=== PATIENT | male | born 1955 | race Caucasian/White ===

== ENCOUNTER 2023-12-22 06:01 | Emergency (ER) | payer MEDICARE, OTHER, SELFPAY ==
[2023-12-22] VITALS (14 sets, daily range): BP systolic 112–155; BP diastolic 62–97; BMI 28.1
--- NOTE | 2023-12-22 06:36 | ED.GENMED ---
History of Present Illness
General
Chief Complaint: Heart Rate Problem
Source: patient
Exam Limitations: none
Time Seen by Provider: 12/22/23 06:27
Nursing documentation reviewed up to this point in time: agreed with
Travel History
Have you had any contact with someone who has COVID-19?: No
Do you have any symptoms of coronavirus? Fever > 100 degrees, chills, cough, shortness of breath, sore throat, loss of taste or smell, muscle aches, or headache?: No
History of Present Illness
History of Present Illness:
69-year-old male PAF followed by Dr. Gilbert status post ablation status post stenting he is on Brilinta, aspirin and atorvastatin went into A-fib around 4:30 AM just about 2 hours ago, has not been in A-fib since when he was
cardioverted and treated supplementally with Xarelto he tells me his typical scenario is he comes in quickly after he starts A-fib he was cardioverted gets put on Xarelto his Brilinta is held he had no fever no chest pain no diarrhea has not eaten
anything today he would like to be cardioverted
Past History
Past History
ED Past Medical History: Arrthythmia and CAD
Social History
Tobacco: Non-smoker
Alcohol: None
Drug: None
Personal:
Living: with family
Review of Systems
Review of Systems
All Other Systems: Not applicable
EENT: Reports no symptoms
Respiratory: Reports no symptoms
Cardiac: Reports palpitations
ABD/GI: Reports no symptoms
: Reports no symptoms
Skin: Reports no symptoms
Neurological: Reports no symptoms
Phy Exam
Physical Exam
Physical Exam:
Physical Exam
General: no apparent distress, not acutely ill
Neck: No jaundice
Heart: Tachycardic irregular
Lungs: no acute respiratory distress. clear bilaterally
Neuro: alert and oriented. no focal neurological deficits
Skin: no rash
Psychiatric: well kept. interactive and cooperative
Extremities: no edema. no calf tenderness.
Course
Orders/Labs/Results
Orders:
Orders
12/22/23 06:11
EKG [Electrocardiogram (*1)] Urgent
Reason for Study: Atrial Fibrillation
EKG- Treatment ONCE
12/22/23 06:34
Propofol [Diprivan] 100 mg IV NOW STA
12/22/23 06:35
ASA Classification Routine
12/22/23 06:41
Comprehensive Metabolic Panel Urgent
12/22/23 06:49
EKG [Electrocardiogram (*1)] Urgent
Reason for Study: Atrial Fibrillation
12/22/23 06:50
EKG- Treatment ONCE
Abnormal Lab Results
12/22/23
06:41
Glucose 105 H mg/dl
(70-99)
Total Protein 6.2 L g/dl
(6.3-8.2)
12/22/23 06:41
Vital Signs
Initial and Last Documented VS:
Initial Vital Signs
Temp Pulse Resp BP Pulse Ox
98.2 F 73 24 137/74 96
12/22/23 06:04 12/22/23 06:04 12/22/23 06:04 12/22/23 06:04 12/22/23 06:04
Last Documented Vital Signs
Temp Pulse Resp BP Pulse Ox
98.2 F 51 18 112/67 96
12/22/23 06:04 12/22/23 07:15 12/22/23 07:15 12/22/23 07:15 12/22/23 07:15
Procedures
Cardioversion
Indication:: Afib
Performed by:: ning
Synchronized?: Yes
Energy Used: 200 joules
Number of attempts: 1
Successful?: Yes
Complications: yes
ASA Risk Score: Class II
Any reaction or bad outcome to prior sedation/anesthesia?: No history of a reaction
Sedation level to be attained: moderate
Chart and allergies reviewed: Yes
Patient reassessed prior to sedation: Yes
Time out completed at (validating right patient & procedure): 06:52
History of difficult intubation: No
Airway free of obstruction: Yes
Patient has a gag reflex: Yes
Patient is able to open mouth: Yes
Patient has no dentures: Yes
Patient has no loose teeth: Yes
Medication administered by Provider during Moderate Sedation: IV Propofol (mg)
Total dose administered: 80
Time drug administered: 06:52
Start Time: 06:52
Stop Time: 07:02
MDM/Problems Addressed
Differential Diagnosis Includes:
A-fib and flutter atrial tach
MDM/Problems Addressed:
A-fib less than 3 hours duration
Chronic conditions affecting care:
CAD A-fib
Acute Exacerbation and/or Progression of Chronic Illness:
CAD A-fib
*Pulse Oximetry
Patient hypoxic: no
*EKG
Interpreted by ED Provider?: Yes
Interpretation: abnormal
Comparison EKG: no comparison EKG present
Heart Rate: 110
Rate: tachycardiac
Rhythm: atrial flutter
Ischemia: non-specific ST changes
*Garment Presser Interpretation
Rate: tachycardiac
Interpretation: abnormal
Heart Rate: 118
Rhythm: a-fib
*Critical Care Note
Total Time (30-74mins, 75-104mins- exclusive of procedures): 15
Data Reviewed
Review of Other/Old Records Reveals: Labs and Progress Notes
Source: patient
Prescriptions/Medications Considered But Not Given:
Propafenone
Further Testing Considered But Not Given:
Chest x-ray
Update Note
Update Note:
Update patient successfully cardioverted into normal sinus rhythm 1 synchronized 200 J shock
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
ED Attending Note
-
Portions of this chart may have been created with voice recognition software.� Occasional wrong word or��sound alike� substitutions may have occurred due to the inherent limitations of voice recognition software.
Discharge Plan
Departure
Patient Disposition: Home (Routine Discharge)
Date of Disposition: 12/22/23
Time of Disposition: 07:46
Patient with high blood pressure during this ER visit?: No
Condition: Good
Discharge Problem:
Atrial fibrillation status post cardioversion
Instructions: Atrial Fibrillation (DC), MODERATE SEDATION ADULT
Prescriptions:
No Action
aspirin [Ecotrin Low Strength] 81 MG tablet,delayed release (DR/EC)
81 mg PO DAILY
atorvastatin 80 MG tablet
80 mg PO QPM Qty: 30 3RF
ticagrelor [Brilinta] 90 MG tablet
90 mg PO BID Qty: 60 3RF
metoprolol succinate 25 MG tablet extended release 24 hr
12.5 mg PO DAILY
travoprost 1 DROP drops
1 drp BOTH EYES QPM
loratadine 10 MG tablet
10 mg PO PRN PRN (Reason: allergies)
rivaroxaban [Xarelto] 20 MG tablet
20 mg PO DAILY Qty: 30 0RF
Xarelto 20 mg tablet
20 mg PO DAILY Qty: 30 0RF
Referrals:
Scooby Feng MD [Family Provider] -
Galdino Gilbert MD [Active] - Next open appointment
Activity Restrictions/Additional Instructions:
Hold Brilinta start Xarelto 20 mg for the next [address] Gilbert's office to arrange follow-up
Interventions
Interventions:
*Risk Screen - Suicide Last Done: 12/22/23 06:04
*General Assessment Last Done: 12/22/23 06:04
*Neglect/Abuse Screening Last Done: 12/22/23 06:04
ED- Fall Risk Assessment Last Done: 12/22/23 06:04
*ED COVID-19 Vaccine History Last Done: 12/22/23 06:04
ED- Cardiac Assessment Last Done: 12/22/23 06:25
ED- Pulmonary Assessment Last Done: 12/22/23 06:25
[2023-12-22] MEDS: DIPRIVAN 100 MG IV (06:48)
[2023-12-22 07:18] LABS: ALT (SGPT) 38 U/L (0-50); AST (SGOT) 30 U/L (17-59); Albumin 3.8 g/dl (3.5-5.0); Alkaline Phosphatase 78 U/L (38-126); Blood Urea Nitrogen 20 mg/dl (9-20); Calcium 9.2 mg/dl (8.4-10.2); Carbon Dioxide 25 mmol/L (22-30); Chloride 106 mmol/L (98-107); Estimated Creatinine Clearance 100 ml/min; Glucose 105 mg/dl (70-99); Potassium 3.8 mmol/L (3.5-5.1); Sodium 140 mmol/L (135-145); Total Protein 6.2 g/dl (6.3-8.2); eGFR > 60.00
== END 2023-12-22 08:17 | disposition home or self-care (01) ==
LOC: EMR 06:01
PROVIDERS: EMERGENCY PHYSICIAN Emergency Medicine; FAMILY PHYSICIAN Family Medicine
DX: I48.91 Unspecified atrial fibrillation (principal); I25.10 Atherosclerotic heart disease of native coronary artery without angina pectoris; I48.92 Unspecified atrial flutter; Z79.02 Long term (current) use of antithrombotics/antiplatelets; Z79.01 Long term (current) use of anticoagulants
CPT/HCPCS: 92960; 99285; 99152; 80053; 93005

== ENCOUNTER 2024-05-06 11:27 | Emergency (ER) | payer MEDICARE, OTHER, SELFPAY ==
[2024-05-06] VITALS (16 sets, daily range): BP systolic 99–134; BP diastolic 60–102; BMI 27.6
[2024-05-06 11:56] LABS: % Basophils 0.5 % (0-2); % Eosinophils 3.4 % (0-6); % Immature Granulocytes 0.1 % (0-0.5); % Lymphocytes 22.6 % (20.5-51.1); % Monocytes 11.1 % (1.7-9.3); % Neutrophils 62.3 % (42.2-75.2); Absolute Eosinophils 0.3 10^3/uL (0-0.7); Absolute Lymphocytes 1.8 10^3/uL (1.2-3.4); Absolute Monocytes 0.9 10^3/uL (0.1-0.6); Absolute Neutrophils 4.9 10^3/uL (1.4-6.5); Hematocrit 44.6 % (39.0-52.0); Hemoglobin 15.5 g/dL (13.0-18.0); Mean Corp Hgb Conc. 34.8 g/dL (33.0-37.0); Mean Corpuscular Hgb 29.1 pg (27.0-31.0); Mean Corpuscular Volume 83.8 fL (80.0-94.0); Mean Platelet Volume 10.3 fL (7.4-10.4); Nucleated Red Blood Cells % 0 % (-); Platelet Count 222 10^3/uL (130-400); Red Blood Cell Count 5.32 10^6/uL (4.70-6.10); Red Cell Dist. Width 13.6 % (11.5-14.5); White Blood Cell Count 7.8 10^3/uL (4.8-10.8)
[2024-05-06 12:12] LABS: ALT (SGPT) 24 U/L (0-50); AST (SGOT) 30 U/L (17-59); Albumin 4.2 g/dl (3.5-5.0); Alkaline Phosphatase 69 U/L (38-126); Blood Urea Nitrogen 14 mg/dl (9-20); Carbon Dioxide 24 mmol/L (22-30); Chloride 110 mmol/L (98-107); Estimated Creatinine Clearance 98 ml/min; Glucose 108 mg/dl (70-99); Potassium 4.2 mmol/L (3.5-5.1); Sodium 142 mmol/L (135-145); Total Bilirubin 1.3 mg/dl (0.2-1.3); Total Protein 6.7 g/dl (6.3-8.2); eGFR > 60.00
--- NOTE | 2024-05-06 12:30 | ED.GENMED ---
History of Present Illness
General
Chief Complaint: Heart Rate Problem
Source: patient and records
Exam Limitations: none
Time Seen by Provider: 05/06/24 11:47
Nursing documentation reviewed up to this point in time: agreed with
Travel History
Have you had any contact with someone who has COVID-19?: No
Do you have any symptoms of coronavirus? Fever > 100 degrees, chills, cough, shortness of breath, sore throat, loss of taste or smell, muscle aches, or headache?: No
History of Present Illness
History of Present Illness:
Patient is a 69-year-old male who presents to the emergency department with being in atrial fibrillation since sometime between 7 AM and 8:20 AM this morning. Patient feels a little off. Patient denies chest pain, shortness of breath. Patient
denies fever or chills. Patient denies any recent illnesses or injuries. Patient denies any GI or symptoms. Patient's been on Brilinta because of stents and took Xarelto this morning. Patient typically does not take Xarelto on a regular basis.
Past History
Past History
ED Past Medical History: Arrthythmia, CAD and Other (Kidney stones, hiatal hernia)
Social History
Tobacco: Non-smoker
Alcohol: None
Drug: None
Personal:
Living: with family
Review of Systems
Review of Systems
All Other Systems: ROS reviewed and negative except as documented in HPI and ROS
Constitutional: Reports fatigue; Denies fever or chills
EENT: Reports no symptoms
Respiratory: Reports no symptoms
Cardiac: Reports palpitations; Denies chest pain, diaphoresis or syncope
ABD/GI: Reports no symptoms
: Reports no symptoms
Musculoskeletal: Reports no symptoms
Skin: Reports no symptoms
Neurological: Reports no symptoms
Hematologic/Lymphatic: Reports no symptoms
Phy Exam
Physical Exam
Physical Exam:
Physical Exam
General: No apparent distress, alert and appropriate, well nourished, well hydrated
HENT: Normocephalic, supple with no lymphadenopathy, no thyromegaly
Eyes: Clear sclera, conjuctiva without injection
Heart: irregular irregular rhythm and tachycardic rate. No S3, S4. No murmur. No NVDuit
Lungs: No respiratory distress, no stridor, lung sounds clear and equal bilaterally, chest wall symmetrical and nontender
Abdomen: Soft, nontender, no organomegaly, no CVA tenderness, BS good
Neuro: Alert and oriented x 3, CN II - XII intact, no motor focality, no cerebellar dysfunction
Skin: no rash
Psychiatric: well kept. interactive and cooperative
Extremities: No edema, cyanosis, tenderness, Good and equal peripheral pulses.
Scores
Heart Failure Risk
Heart Failure Risk Score: Not Applicable
Heart Score for Chest Pain Patients
STEMI patient?: Not applicable
Withdrawal Assessment of Alcohol
Withdrawal Assessment Completed?: Not applicable
Course
Orders/Labs/Results
Orders:
Orders
05/06/24 11:28
Electrocardiogram (*1) Urgent
Reason for Study: Chest Pain
05/06/24 11:29
EKG- Treatment ONCE
05/06/24 11:47
Complete Blood Count/With Diff Urgent
Comprehensive Metabolic Panel Urgent
05/06/24 12:08
Propofol [Diprivan] 20 ml .ROUTE .STK-MED
05/06/24 12:23
Electrocardiogram (*1) Urgent
Reason for Study: Other
Other Reason for Exam: post cardioversion
EKG- Treatment ONCE
Abnormal Lab Results
05/06/24
11:47
Chloride 110 H mmol/L
(98-107)
Glucose 108 H mg/dl
(70-99)
05/06/24 11:47
Vital Signs
Initial and Last Documented VS:
Initial Vital Signs
Temp Pulse Resp BP Pulse Ox
98.6 F 125 16 134/74 96
05/06/24 11:32 05/06/24 11:32 05/06/24 11:32 05/06/24 11:32 05/06/24 11:32
Last Documented Vital Signs
Temp Pulse Resp BP Pulse Ox
98.6 F 59 15 99/64 94
05/06/24 12:19 05/06/24 12:30 05/06/24 12:30 05/06/24 12:30 05/06/24 12:30
Procedures
Moderate Sedation
Moderate Sedation Start Time(when first medication is given): 12:19
Cardioversion
Indication:: Afib
Performed by:: linkenheimer
Synchronized?: Yes
Energy Used: Other (100)
Number of attempts: 1
Successful?: Yes
Complications: none
ASA Risk Score: Class II
Any reaction or bad outcome to prior sedation/anesthesia?: No history of a reaction
Sedation level to be attained: deep
Chart and allergies reviewed: Yes
Patient reassessed prior to sedation: Yes
Time out completed at (validating right patient & procedure): 12:19
History of difficult intubation: No
Airway free of obstruction: Yes
Patient has a gag reflex: Yes
Patient is able to open mouth: Yes
Patient has no dentures: Yes
Patient has no loose teeth: Yes
Medication administered by Provider during Moderate Sedation: IV Propofol (mg)
Total dose administered: 70
Time drug administered: 12:19
Start Time: 12:19
Stop Time: 12:29
*Radiology
Radiology exam reviewed: other (na)
*Pulse Oximetry
Patient hypoxic: no
*EKG
Interpreted by ED Provider?: Yes
EKG Intrepretation Date: 05/06/24
EKG Intrepretation Time: 12:37
Interpretation: abnormal
Comparison EKG: changes noted
Heart Rate: 141
Rate: tachycardiac
Rhythm: a-fib
[place]: normal axis
Interval: normal QT interval
QRS Pattern: normal QRS
Ischemia: non-specific ST changes
*Curriculum Coach Interpretation
Rate: tachycardiac
Interpretation: abnormal
Heart Rate: 140
Rhythm: a-fib
*Critical Care Note
Total Time (30-74mins, 75-104mins- exclusive of procedures): Not Applicable
ED Attending Note
-
Portions of this chart may have been created with voice recognition software.� Occasional wrong word or��sound alike� substitutions may have occurred due to the inherent limitations of voice recognition software.
Discharge Plan
Departure
Patient Disposition: Home (Routine Discharge)
Date of Disposition: 05/06/24
Time of Disposition: 12:40
Patient with high blood pressure during this ER visit?: No
Condition: Good
Covid-19: Not Applicable
Discharge Problem:
Atrial fibrillation with rapid ventricular response, Encounter for cardioversion procedure
Instructions: Atrial Fibrillation (DC), MODERATE SEDATION ADULT
Prescriptions:
No Action
aspirin [Ecotrin Low Strength] 81 MG tablet,delayed release (DR/EC)
81 mg PO DAILY
atorvastatin 80 MG tablet
80 mg PO QPM Qty: 30 3RF
ticagrelor [Brilinta] 90 MG tablet
90 mg PO BID Qty: 60 3RF
metoprolol succinate 25 MG tablet extended release 24 hr
12.5 mg PO DAILY
travoprost 1 DROP drops
1 drp BOTH EYES QPM
loratadine 10 MG tablet
10 mg PO PRN PRN (Reason: allergies)
rivaroxaban [Xarelto] 20 MG tablet
20 mg PO DAILY Qty: 30 0RF
Xarelto 20 mg tablet
20 mg PO DAILY Qty: 30 0RF
Referrals:
Scooby Feng MD [Family Provider] - As needed
Galdino Gilbert MD [Active] - Call in 1-3 days for appt
Interventions
Interventions:
*Risk Screen - Suicide Last Done: 05/06/24 12:00
*General Assessment Last Done: 05/06/24 11:43
*Neglect/Abuse Screening Last Done: 05/06/24 12:00
ED- Fall Risk Assessment Last Done: 05/06/24 11:44
*ED COVID-19 Vaccine History Last Done: 05/06/24 11:32
ED- Cardiac Assessment Last Done: 05/06/24 11:42
ED- Pulmonary Assessment Last Done: 05/06/24 11:43
Discharge Date and Time
Print Language: AMHARIC
== END 2024-05-06 14:25 | disposition home or self-care (01) ==
LOC: EMR 11:27
PROVIDERS: EMERGENCY PHYSICIAN Emergency Medicine; FAMILY PHYSICIAN Family Medicine
DX: I48.91 Unspecified atrial fibrillation (principal); Z79.01 Long term (current) use of anticoagulants; Z79.02 Long term (current) use of antithrombotics/antiplatelets
CPT/HCPCS: 92960; 99285; 99152; 80053; 85025; 93005

== ENCOUNTER → 2024-06-10 13:43 | Outpatient (REF) | payer MEDICARE, OTHER, SELFPAY ==
[2024-06-10 14:26] LABS: % Basophils 0.4 % (0-2); % Eosinophils 1.3 % (0-6); % Immature Granulocytes 0.5 % (0-0.5); % Lymphocytes 14.7 % (20.5-51.1); % Monocytes 11.3 % (1.7-9.3); % Neutrophils 71.8 % (42.2-75.2); Absolute Eosinophils 0.1 10^3/uL (0-0.7); Absolute Lymphocytes 1.2 10^3/uL (1.2-3.4); Absolute Monocytes 0.9 10^3/uL (0.1-0.6); Absolute Neutrophils 5.7 10^3/uL (1.4-6.5); Hematocrit 24.6 % (39.0-52.0); Hemoglobin 8.6 g/dL (13.0-18.0); Mean Corpuscular Hgb 30.2 pg (27.0-31.0); Mean Corpuscular Volume 86.3 fL (80.0-94.0); Mean Platelet Volume 10.4 fL (7.4-10.4); Nucleated Red Blood Cells % 0 % (-); Platelet Count 190 10^3/uL (130-400); Red Blood Cell Count 2.85 10^6/uL (4.70-6.10); Red Cell Dist. Width 13.6 % (11.5-14.5)
== END ==
LOC: REG 13:43
PROVIDERS: ATTENDING PHYSICIAN Family Medicine; REFERRING PHYSICIAN Internal Medicine Cardiovascular Disease
DX: S80.12XA Contusion of left lower leg, initial encounter (principal)
CPT/HCPCS: 36415; 85025

== ENCOUNTER 2024-08-21 08:15 | Day surgery (SDC) | payer MEDICARE, OTHER, SELFPAY ==
[2024-08-15 10:57] VITALS: BMI 29.6
[2024-08-21] VITALS (13 sets, daily range): BP systolic 103–152; BP diastolic 48–90
[2024-08-21] MEDS: TYLENOL 1000 MG PO (09:26)
[2024-08-21] MEDS: FLOMAX 0.4 MG PO (09:36)
[2024-08-21 10:48] LABS: ACT-LR - POC 337 Seconds (116-155)
[2024-08-21 11:06] LABS: ACT-LR - POC 300 Seconds (116-155)
--- NOTE | 2024-08-21 11:34 | ITS.CL.ABL ---
Competency Evaluated Nurse Aide - Ablation
Ablation
Procedure Report:
ELECTROPHYSIOLOGY ABLATION STUDY
DATE:: August 21, 2024 REFERRING: Dr. Galdino Gilbert
INDICATION: Paroxysmal supraventricular tachycardia in the form of atrial fibrillation. Prior PVI 2013 with a 28 mm cryoballoon
HISTORY: See H and P. As above
ANTIARRHYTHMIC DRUG: Prior history of coronary artery disease
PRE-PROCEDURE ELY: No atrial thrombus
PRESENTING RHYTHM: Sinus bradycardia
'TIME-OUT': called and confirmed.
SEDATION/ANESTHESIA: provided via the anesthesia department using general anesthesia (LMA).
INTRAVENOUS/ARTERIAL ACCESS:
Right femoral venous - 8Fr
Left femoral venous - 8 Fr, 6 Fr
Vascade vascular closure was placed to each femoral vein
Ultrasound guidance for bilateral femoral vein access was utilized by me to obtain access with demonstration of normal anatomy
CHADS-VASC Score:
HAS-Bled Score
PROCEDURE:
1. A decapolar CS catheter was placed within the CS for mapping and pacing. This was also used as the reference catheter for the 3-D map.
2. The intracardiac ultrasound catheter was positioned in the RA to identify the FO for targeting of transseptal puncture, assist in identification of the pulmonary vein ostia, monitoring pre and post ablation pulmonary vein flow velocities,
monitoring for 'bubble' formation during RF application as a sign of thermal injury, and to monitor for pericardial effusion during mapping and ablation procedure. Left atrial size, LV ejection fraction, and pulmonary vein flows were monitored
pre and post ablation procedure. The other valves were inspected and found to be free of significant regurgitation or stenosis.
3. Half of the calculated heparin bolus was administered prior to the first transeptal puncture. Transseptal puncture was performed to diagnose RA and LA pressure so that safety of LA mapping and ablation could be further assessed, and to access
the left atrium and pulmonary veins for mapping and ablation. This entailed advancing an 8 Fr SL-1 sheath with dilator into the superior vena cava and withdrawing both (monitoring intracardiac ultrasound, fluoroscopy and tip pressure) with the tip
oriented toward the atrial septum. The fossa ovalis was engaged (indicated by sudden displacement of the sheath tip as well as tenting of the fossa seen on intracardiac ultrasound). Left atrial access required a pass with the [place] needle
extended. Left atrial catheter position was confirmed by pressure monitoring (RA mean pressure 8 mm Hg and LA mean presure 14 mm Hg), LA saturation (99%), as well as fluoroscopy. The sheath was advanced over the dilator and positioned in the left
atrium. This procedure was repeated for the Agilis sheath. The remainder of the calculated heparin bolus was administered and heparin was
infused to maintain ACT at 300 -350 seconds throughout the case.
4. RA pacing was performed via the proximal decapolar poles and LA pacing was performed via the distal decapolr poles.
5. A quadrapolar catheter was first positioned at the His position for His Bundle recording which was tagged via the 3-D Navex sytem, and then passed to the RVA for RV pacing and recording.
6. The multipolar catheter and the pulsed light catheter placed in each of the LIPV, LSPV, RSPV and the RIPV. There was reconnection of the josephine at the superior aspect and inferior aspect of the septum of the right pulmonary veins.
7. Next, a 3-D map was created using Navex. A 3-D reconstructed CT image was compared to the 3-D Navex map to assist in anatomic interpretation, mapping and ablation. The CT image and the NavX image were fused.
8. A total of 78 lesions were given to the posterior wall and anterior of each set of veins as well as the interatrial septum on the septal aspect. This rendered entrance and exit block in all 4 pulmonary veins plus the posterior wall with
entrance and exit block.
9. With coronary sinus pacing the multipolar catheter interrogated the prior cavotricuspid isthmus area demonstrating bidirectional block and intra isthmus conduction time greater than 120 ms bidirectionally.
TOTAL FLOURO TIME: 14.7 minutes 122 mGy
TOTAL RF DURATION: 0 minutes
REVERSAL OF HEPARIN: 30 mg of protamine, slow IV administration
COMPLICATIONS:
None
Intracardiac US shows no pericardial effusion post ablation.
SUMMARY:
Complex left atrial mapping and ablation.
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
RECOMMENDATIONS:
1. Admit to monitored bed.
2. Resume anticoagulation
3. Out of bed to hours
4. Consider same-day discharge
Copy to: Dr. Galdino Gilbert
[2024-08-21] MEDS: TOPROL XL 25 MG PO (12:59)
--- NOTE | 2024-08-21 13:54 | W.PN.UPDATE ---
Addendum entered and electronically signed by ISI Gustafson 08/21/24 15:27:
ADD: Pt remains in SR w/short bursts AT, 90-110s. He is oob ambulating, groin site stable. Dr. Gilbert out to see pt.
Will adjust metoprolol xl to 12.5mg BID with one dose this evening. A [employer] monitor will be sent to patient in 5-7 days for outpatient monitoring. Continue OAC at this time.
Home today.
Original Note:
Update Note
Progress Note Update
Pt seen post PFA. Bilat groin sites with vascade closure, no ht/bleeding, oob ambulating, urinating without difficulty. Post EKG SB 50s as before, then developed MAT with rates 90-110s, some associated palpitations. One dose metoprolol xl 25mg po
given with no real changes. Remains in SR w/bursts AT. Dr. Gilbert and Dr. Fam both aware. Resume xarelto tonight. Followup at [facility] as scheduled. Home today if groin site/tele remain stable.
== END 2024-08-21 16:11 | disposition home or self-care (01) ==
LOC: CATH 08:15
PROVIDERS: ATTENDING PHYSICIAN Internal Medicine Cardiovascular Disease; FAMILY PHYSICIAN Family Medicine
DX: I48.0 Paroxysmal atrial fibrillation (principal); I47.19 Other supraventricular tachycardia; I25.10 Atherosclerotic heart disease of native coronary artery without angina pectoris; I10 Essential (primary) hypertension; E78.5 Hyperlipidemia, unspecified; N40.0 Benign prostatic hyperplasia without lower urinary tract symptoms; H40.9 Unspecified glaucoma; Z95.5 Presence of coronary angioplasty implant and graft; Z79.82 Long term (current) use of aspirin; Z79.01 Long term (current) use of anticoagulants
CPT/HCPCS: C1732; C1894; C1730; C1733; C1769; C1892; C1759; 85347; 93005; 93656; 93657; C1760

== ENCOUNTER 2024-09-03 12:00 | Emergency (ER) | payer MEDICARE, OTHER, SELFPAY ==
[2024-09-03 12:05] VITALS: BP 102/75
--- NOTE | 2024-09-03 12:10 | ED.GENMED ---
ED Provider Triage
<Margo Larios PA-C - Last Filed: 09/03/24 12:13>
-
Patient seen by provider in Triage?: Seen in Triage
Attestation: A medical screening examination has been initiated by a qualified medical provider. Based on the assessment performed at this time, it has been determined that an emergent medical condition may exist and the patient has been informed
that further medical evaluation and possible additional diagnostic testing may be needed.
HPI: 69yoM here with palpitations since 2am. Currently feeling improved. S/p ablation 2 weeks ago.
GENERAL: Alert , in no apparent distress
EYE: No visual abnormalities.
NECK: Trachea midline
ENT: No visible abnormalities.
LUNGS: No acute respiratory distress
NEUROLOGICAL: Alert and oriented
SKIN: Skin intact. No visible changes.
MUSCULOSKELETAL: Moving extremities normally
PSYCH: Normal and appropriate interaction.
This is a medical evaluation conducted in person to initiate diagnostic evaluation and provide initial therapeutics. Please see further documentation by the treating clinician.
EKG in triage shows sinus bradycardia. Cardiac labs and magnesium ordered.
History of Present Illness
<Margo Larios PA-C - Last Filed: 09/03/24 12:13>
General
Chief Complaint: Cardiac Symptoms
Time Seen by Provider: 09/03/24 12:50
<Karen Roche PA-C - Last Filed: 09/03/24 19:31>
General
Source: patient
Exam Limitations: none
Nursing documentation reviewed up to this point in time: agreed with
History of Present Illness
History of Present Illness:
Patient is a 69-year-old male with history of CAD, atrial fibrillation s/p cardiac ablation 2 weeks ago presenting to the emergency department for evaluation of palpitations. Patient reports awoke at 2 AM this morning with sensation that his heart
was racing. He also endorses very mild shortness of breath and chest discomfort at that time. Symptoms persisted throughout the night and he spoke with his cloth calender the morning who states he could either wait it out or come to the emergency
department for evaluation. Patient presented to the emergency department at noon today although he states as he walked through the door symptoms resolved. At time my assessment�patient is asymptomatic. Patient denies any current feeling
palpitations, chest pain, shortness of breath, dizziness/lightheadedness, numbness/tingling, or back pain.
Patient did have cardiac ablation with Dr. Gilbert approximately 2 weeks ago
Patient is compliant with Xarelto.
Past History
<Margo Larios PA-C - Last Filed: 09/03/24 12:13>
Past History
ED Past Medical History: Arrthythmia, CAD and Other (Kidney stones, hiatal hernia)
Social History
Tobacco: Non-smoker
Alcohol: None
Drug: None
Personal:
Living: with family
Review of Systems
<Karen Roche PA-C - Last Filed: 09/03/24 19:31>
Review of Systems
Allergies reviewed?: Yes
All Other Systems: ROS reviewed and negative except as documented in HPI and ROS
Phy Exam
<Karen Roche PA-C - Last Filed: 09/03/24 19:31>
Physical Exam
Physical Exam:
Vitals: Patient's vital signs are stable. Afebrile
General: Patient is well appearing, no acute distress
Skin: Warm and dry, no rashes or lesions
Head: Normocephalic, atraumatic
Eyes: Sclera nonicteric. EOMs intact. No nystagmus.
Throat: Protecting airway
Neck: Normal ROM, no cervical spine tenderness, no meningismus
Cardiac: Regular rate and rhythm, no murmurs.
Pulm: Normal respiratory effort, no wheezes, rales, rhonchi heard on exam.
Abdomen: No abdominal tenderness.
Extremities: No evidence of cyanosis or edema. Great distal pulses
Neuro: AAOx3. CN II-XII intact. No focal neurologic deficits.
Psychiatric: Normal affect.
Course
<Margo Larios PA-C - Last Filed: 09/03/24 12:13>
Orders/Labs/Results
Orders:
Orders
09/03/24 12:02
ECG [Electrocardiogram (*1)] Urgent
Reason for Study: Palpitations
EKG- Treatment ONCE
09/03/24 12:18
Complete Blood Count/With Diff Urgent
Comprehensive Metabolic Panel Urgent
Magnesium Urgent
Troponin I Urgent
Abnormal Lab Results
09/03/24
12:18
Absolute Neuts (auto) 7.4 H 10^3/uL
(1.4-6.5)
Absolute Monos (auto) 0.8 H 10^3/uL
(0.1-0.6)
Lymphocytes % 15.2 L %
(20.5-51.1)
Glucose 111 H mg/dl
(70-99)
09/03/24 12:18
09/03/24 12:18
Vital Signs
Initial and Last Documented VS:
Initial Vital Signs
Temp Pulse Resp BP Pulse Ox
36.8 C 57 18 102/75 98
09/03/24 12:05 09/03/24 12:05 09/03/24 12:05 09/03/24 12:05 09/03/24 12:05
Last Documented Vital Signs
Temp Pulse Resp BP Pulse Ox
36.8 C 45 17 109/70 97
09/03/24 12:05 09/03/24 14:30 09/03/24 14:30 09/03/24 14:00 09/03/24 14:39
<Karen Roche PA-C - Last Filed: 09/03/24 19:31>
Orders/Labs/Results
Orders:
Orders
09/03/24 12:02
ECG [Electrocardiogram (*1)] Urgent
Reason for Study: Palpitations
EKG- Treatment ONCE
09/03/24 12:18
Complete Blood Count/With Diff Urgent
Comprehensive Metabolic Panel Urgent
Magnesium Urgent
Troponin I Urgent
Abnormal Lab Results
09/03/24
12:18
Absolute Neuts (auto) 7.4 H 10^3/uL
(1.4-6.5)
Absolute Monos (auto) 0.8 H 10^3/uL
(0.1-0.6)
Lymphocytes % 15.2 L %
(20.5-51.1)
Glucose 111 H mg/dl
(70-99)
09/03/24 12:18
09/03/24 12:18
Vital Signs
Initial and Last Documented VS:
Initial Vital Signs
Temp Pulse Resp BP Pulse Ox
36.8 C 57 18 102/75 98
09/03/24 12:05 09/03/24 12:05 09/03/24 12:05 09/03/24 12:05 09/03/24 12:05
Last Documented Vital Signs
Temp Pulse Resp BP Pulse Ox
36.8 C 45 17 109/70 97
09/03/24 12:05 09/03/24 14:30 09/03/24 14:30 09/03/24 14:00 09/03/24 14:39
<Kevin Moura MD - Last Filed: 09/03/24 19:51>
Orders/Labs/Results
Orders:
Orders
09/03/24 12:02
ECG [Electrocardiogram (*1)] Urgent
Reason for Study: Palpitations
EKG- Treatment ONCE
09/03/24 12:18
Complete Blood Count/With Diff Urgent
Comprehensive Metabolic Panel Urgent
Magnesium Urgent
Troponin I Urgent
Abnormal Lab Results
09/03/24
12:18
Absolute Neuts (auto) 7.4 H 10^3/uL
(1.4-6.5)
Absolute Monos (auto) 0.8 H 10^3/uL
(0.1-0.6)
Lymphocytes % 15.2 L %
(20.5-51.1)
Glucose 111 H mg/dl
(70-99)
09/03/24 12:18
09/03/24 12:18
Vital Signs
Initial and Last Documented VS:
Initial Vital Signs
Temp Pulse Resp BP Pulse Ox
36.8 C 57 18 102/75 98
09/03/24 12:05 09/03/24 12:05 09/03/24 12:05 09/03/24 12:05 09/03/24 12:05
Last Documented Vital Signs
Temp Pulse Resp BP Pulse Ox
36.8 C 45 17 109/70 97
09/03/24 12:05 09/03/24 14:30 09/03/24 14:30 09/03/24 14:00 09/03/24 14:39
<Karen Roche PA-C - Last Filed: 09/03/24 19:31>
MDM/Problems Addressed
Differential Diagnosis Includes:
Not limited to: Paroxysmal atrial fibrillation, other cardiac arrhythmia, viral illness, dehydration, etc.
MDM/Problems Addressed:
69-year-old male presenting with history of palpitations resolved by my assessment in the ER. Patient with recent cardiac ablation 2 weeks prior. Patient did have approximately 10 hours of palpitations associated with very mild shortness of
breath, lightheadedness, chest discomfort. Symptoms completely resolved on my assessment. Vital stable. Patient with normal sinus rhythm, borderline bradycardic at times likely secondary to beta-raciel. Physical exam as above. Patient is very
well-appearing, conversational and nontoxic. Heart regular rate and rhythm. Lungs good bilaterally. Patient is perfusing well. No neurologic deficits noted on exam. On safety consultant�patient appears to be in normal sinus rhythm with normal
vital signs. Labs were initiated in triage which show no clinically significant abnormalities. Troponin of 0.015. patient currently asymptomatic without any chest pain, shortness of breath, or feelings of palpitations. Do not suspect ACS.
Patient has moderate in the emergency department on safety consultant without any evidence of cardiac arrhythmia. Suspect likely patient was in atrial fibrillation earlier today and converted back to normal sinus rhythm by my assessment. Patient is
currently anticoagulated. No indication for admission or further testing at this time. Patient will be discharged with cardiology follow-up and return precautions. Patient seen with attending physician. Patient comfortable with plan. Eager for
discharge.
Chronic conditions affecting care:
Atrial fibrillation s/p ablation, CAD
Acute Exacerbation and/or Progression of Chronic Illness:
Paroxysmal atrial fibrillation
<Karen Roche PA-C - Last Filed: 09/03/24 19:31>
*Pulse Oximetry
Patient hypoxic: no
*EKG
Interpreted by ED Provider?: Yes
EKG Intrepretation Date: 09/03/24
Interpretation: normal
Heart Rate: 45
*Photogrammetric Compilation Specialist Interpretation
Rate: bradycardiac
Interpretation: normal
Heart Rate: 52
Rhythm: sinus
*Critical Care Note
Total Time (30-74mins, 75-104mins- exclusive of procedures): Not Applicable
Data Reviewed
Review of Other/Old Records Reveals: Operative Reports (Cardiac ablation performed on 08/21/[address] Gilbert)
<Karen Roche PA-C - Last Filed: 09/03/24 19:31>
Patient Management
Escalation/DeEscalation of care consider admission/obs:
Admit not indicated
ED Attending Note
<Margo Larios PA-C - Last Filed: 09/03/24 12:13>
-
Portions of this chart may have been created with voice recognition software.� Occasional wrong word or��sound alike� substitutions may have occurred due to the inherent limitations of voice recognition software.
<Kevin Moura MD - Last Filed: 09/03/24 19:51>
ED Attending Note
Patient seen and examined by attending physician: Yes
ED Attending Note:
I have seen and evaluated the patient with a [id number] encounter. I have spoken to the advance practicer provider and involved in the medical history, the physical exam, medical decision making.
Evaluation and management service: agree unless noted differently below.
Results interpretation: agree unless noted differently below.
Focused HPI: 69-year-old male with past medical history of atrial fibrillation on Xarelto (follows with Dr. Gilbert) who is 2 weeks status post cardiac ablation with Dr. Gilbert presents to the ER for evaluation of palpitations. Patient reports
that he woke up at 2 AM with palpitations and tachycardia. He says that symptoms consistent with his episodes of atrial fibrillation. He says that he was waiting for symptoms to improve but they were not improving as the morning went on and so he
ultimately came to the emergency room. He says shortly after he arrived in the emergency room his symptoms completely resolved and he is now asymptomatic. He says he did not have any chest pains. He says he had some mild dizziness associated
symptoms. Denies any significant amount of shortness of breath. He is compliant with all home medications including metoprolol and Xarelto.
Physical exam: Awake alert not in distress. Vital signs noted for heart rate in the 50s otherwise normal�patient chronic mild bradycardia on beta-raciel. He has no audible cardiac rubs gallops or murmurs. His lungs are clear to auscultation
bilaterally. He has no signs of edema in the extremities and good pulses throughout.
Medical Decision Makin-year-old male presents for evaluation after prolonged episode of palpitations and dizziness similar to prior episodes of atrial fibrillation. He is status post ablation [address] Gilbert. His symptoms
resolved shortly after arrival here in the emergency room and he now feels well and is asymptomatic. We sent off screening labs which were all unremarkable. EKG here shows sinus rhythm. Stable for discharge to follow-up with cardiology as an
outpatient.
Discharge Plan
Departure
Patient Disposition: Home (Routine Discharge)
Date of Disposition: 09/03/24
Time of Disposition: 14:36
Patient with high blood pressure during this ER visit?: No
Covid-19: Not Applicable
Discharge Problem:
History of palpitations
Prescriptions:
No Action
aspirin [Ecotrin Low Strength] 81 MG tablet,delayed release (DR/EC)
81 mg PO DAILY
travoprost 1 DROP drops
1 drp BOTH EYES HS
loratadine 10 MG tablet
10 mg PO PRN PRN (Reason: allergies)
Xarelto 20 MG tablet
20 mg PO DAILY Qty: 30 0RF
tamsulosin 0.4 mg Capsule
0.4 mg PO HS
atorvastatin 40 mg Tablet
40 mg PO DAILY
metoprolol succinate 25 MG tablet extended release 24 hr
12.5 mg PO BID Qty: 0 0RF
Referrals:
Scooby Feng MD [Family Provider] -
Galdino Gilbert MD [Active] - Keep scheduled appt
Activity Restrictions/Additional Instructions:
RETURN TO THE EMERGENCY DEPARTMENT WITH ANY PERSISTENT PALPITATIONS, CHEST PAIN, SHORTNESS OF BREATH, DIZZINESS/LIGHTHEADEDNESS, WORSENING IN CURRENT SYMPTOMS, OR ANY OTHER CONCERNS
-Continue to take all your medications as prescribed. Stay well-hydrated and take it easy over the next few days.
-Follow-up with cardiology as scheduled for further evaluation/management
Monitor your symptoms closely and return to the emergency department with any acute worsening/new symptoms
Interventions
Interventions:
*Risk Screen - Suicide Last Done: 09/03/24 14:38
*General Assessment Last Done: 09/03/24 14:37
*Neglect/Abuse Screening Last Done: 09/03/24 14:38
ED- Fall Risk Assessment Last Done: 09/03/24 14:48
*ED COVID-19 Vaccine History Last Done: 09/03/24 14:37
*Nursing Disposition Last Done: 09/03/24 14:48
ED- Pulmonary Assessment Last Done: 09/03/24 14:39
ED- Cardiac Assessment Last Done: 09/03/24 14:39
Discharge Date and Time
Discharge Date/Time: 09/03/24 14:52
Print Language: BURUN[place]
[2024-09-03 12:41] LABS: % Basophils 0.3 % (0-2); % Eosinophils 1.5 % (0-6); % Immature Granulocytes 0.3 % (0-0.5); % Lymphocytes 15.2 % (20.5-51.1); % Monocytes 8.3 % (1.7-9.3); % Neutrophils 74.4 % (42.2-75.2); Absolute Eosinophils 0.2 10^3/uL (0-0.7); Absolute Lymphocytes 1.5 10^3/uL (1.2-3.4); Absolute Monocytes 0.8 10^3/uL (0.1-0.6); Absolute Neutrophils 7.4 10^3/uL (1.4-6.5); Hematocrit 48.4 % (39.0-52.0); Hemoglobin 16.2 g/dL (13.0-18.0); Mean Corp Hgb Conc. 33.5 g/dL (33.0-37.0); Mean Corpuscular Hgb 28.6 pg (27.0-31.0); Mean Corpuscular Volume 85.4 fL (80.0-94.0); Nucleated Red Blood Cells % 0 % (-); Platelet Count 233 10^3/uL (130-400); Red Blood Cell Count 5.67 10^6/uL (4.70-6.10); Red Cell Dist. Width 12.9 % (11.5-14.5)
[2024-09-03 13:04] LABS: ALT (SGPT) 24 U/L (0-50); AST (SGOT) 27 U/L (17-59); Albumin 4.5 g/dl (3.5-5.0); Alkaline Phosphatase 80 U/L (38-126); Blood Urea Nitrogen 17 mg/dl (9-20); Calcium 9.1 mg/dl (8.4-10.2); Carbon Dioxide 26 mmol/L (22-30); Chloride 106 mmol/L (98-107); Glucose 111 mg/dl (70-99); Magnesium 2.2 mg/dl (1.6-2.3); Potassium 4.7 mmol/L (3.5-5.1); Sodium 143 mmol/L (135-145); Total Protein 6.9 g/dl (6.3-8.2); eGFR > 60.00
[2024-09-03 13:09] LABS: Troponin I 0.015 ng/ml
[2024-09-03 13:14] VITALS: BP 117/67
[2024-09-03 14:00] VITALS: BP 109/70
== END 2024-09-03 14:52 | disposition home or self-care (01) ==
LOC: EMR 12:00
PROVIDERS: Physician Assistant; EMERGENCY PHYSICIAN Emergency Medicine; FAMILY PHYSICIAN Family Medicine
DX: R00.2 Palpitations (principal); I25.10 Atherosclerotic heart disease of native coronary artery without angina pectoris; I48.91 Unspecified atrial fibrillation; Z79.01 Long term (current) use of anticoagulants
CPT/HCPCS: 99284; 80053; 83735; 84484; 85025; 93005

== ENCOUNTER 2025-03-07 06:23 | Day surgery (SDC) | payer MEDICARE, OTHER, SELFPAY | END 2025-03-07 12:43 | disposition home or self-care (01) | LOC: GI 06:23 | PROVIDERS: ATTENDING PHYSICIAN Internal Medicine Gastroenterology | DX: Z12.11 Encounter for screening for malignant neoplasm of colon (principal); K64.8 Other hemorrhoids; Z83.719 Family history of colon polyps, unspecified; Z79.01 Long term (current) use of anticoagulants | CPT/HCPCS: G0105 ==